=== PATIENT | female | born 1955 | race Caucasian/White ===

== ENCOUNTER 2017-12-19 13:56 | Day surgery (SDC) | payer OTHER ==
[~2017-12-19] VITALS: Ht 160 cm; Wt 68.7 kg
[~2017-12-19 13:56] MED LIST: GABA100; ROSU10TA PO; ROSU5; TRAM50 PO
== END 2017-12-19 15:05 | disposition home or self-care (01) ==
LOC: ORSCSDS 13:56
PROVIDERS: Internal Medicine Gastroenterology
PROC: 0DB58ZX Excision of Esophagus, Via Natural or Artificial Opening Endoscopic, Diagnostic (ICD-10-PCS; principal; 2017-12-19 15:15)
PROC: 0D758DZ Dilation of Esophagus with Intraluminal Device, Via Natural or Artificial Opening Endoscopic (ICD-10-PCS; principal; 2017-12-19 15:15)
DX: R13.10 Dysphagia, unspecified (principal); K22.70 Barrett's esophagus without dysplasia; K22.2 Esophageal obstruction; J32.0 Chronic maxillary sinusitis; K44.9 Diaphragmatic hernia without obstruction or gangrene; Z87.891 Personal history of nicotine dependence; Z79.899 Other long term (current) drug therapy
CPT/HCPCS: 87081; 88305

== ENCOUNTER 2020-10-06 09:41 | Day surgery (SDC) | payer MEDICARE, BC ==
[~2020-10-06] VITALS: Ht 160 cm; Wt 71.5 kg
[~2020-10-06 09:41] MED LIST changes: +OMEP20ER PO
[2020-10-06] MEDS ORDERED: OMEP20ER (09:56)
== END 2020-10-06 11:15 | disposition home or self-care (01) ==
LOC: ORSCSDS 09:41
PROVIDERS: Internal Medicine Gastroenterology
PROC: 0D758ZZ Dilation of Esophagus, Via Natural or Artificial Opening Endoscopic (ICD-10-PCS; principal; 2020-10-06 11:00)
PROC: 0DB58ZX Excision of Esophagus, Via Natural or Artificial Opening Endoscopic, Diagnostic (ICD-10-PCS; principal; 2020-10-06 11:00)
DX: K22.70 Barrett's esophagus without dysplasia (principal); R13.10 Dysphagia, unspecified; K44.9 Diaphragmatic hernia without obstruction or gangrene; Z79.899 Other long term (current) drug therapy
CPT/HCPCS: 88305; J2704; J7120

== ENCOUNTER → 2021-08-13 | Outpatient (CLI) | payer MEDICARE, BC ==
[~2021-08-13] MED LIST changes: +OMEP20ER
[2021-08-13 12:54] LABS: Anion Gap 12 mmol/L (6-16); Blood Urea Nitrogen 8 mg/dL (8-24); Bun/Creatinine Ratio 12.7 (12.0-20.0); CO2, Blood 30 mmol/L (21-32); Calcium, Blood 8.7 mg/dL (8.5-10.1); Chloride, Blood 103 mmol/L (98-108); Creatinine, Blood 0.63 mg/dL (0.40-1.00); Glomerular Filtration Rate >60 (60-); Glucose, Blood 95 mg/dL (70-99); Potassium, Blood 3.6 mmol/L (3.5-5.5); Sodium, Blood 145 mmol/L (136-145)
[2021-08-13 13:33] LABS: CPK Creatine Kinase 64 U/L (26-192)
== END | disposition home or self-care (01) ==
LOC: LAB SHORT 12:44
PROVIDERS: General Practice
DX: E87.5 Hyperkalemia (principal)
CPT/HCPCS: 80048; 82550

== ENCOUNTER 2021-08-17 07:40 | Day surgery (SDC) | payer MEDICARE, BC ==
[~2021-08-17] VITALS: Ht 160 cm; Wt 67.8 kg
== END 2021-08-17 09:33 | disposition home or self-care (01) ==
LOC: ORSCSDS 07:40
DX: R13.10 Dysphagia, unspecified (principal); K22.70 Barrett's esophagus without dysplasia; K22.2 Esophageal obstruction; K44.9 Diaphragmatic hernia without obstruction or gangrene; Z87.891 Personal history of nicotine dependence; Z79.899 Other long term (current) drug therapy
CPT/HCPCS: 88305; J2704; J7120

== ENCOUNTER → 2021-08-18 | Outpatient (CLI) | payer MEDICARE, BC ==
[2021-09-02 01:07] LABS: TRICYCLIC ANTIDEP Negative ng/mL (Cutoff=100)
== END | disposition home or self-care (01) ==
LOC: LAB SHORT 09:05
PROVIDERS: Family Medicine
DX: Z51.81 Encounter for therapeutic drug level monitoring (principal); Z79.899 Other long term (current) drug therapy
CPT/HCPCS: G0480; G0481

== ENCOUNTER → 2022-02-06 | Outpatient (CLI) | payer MEDICARE, BC ==
[2022-02-11 08:09] LABS: TRAMADOL >5882 (.)
== END | disposition home or self-care (01) ==
LOC: LAB 14:02 → LAB SHORT 14:02
PROVIDERS: Family Medicine
DX: Z51.81 Encounter for therapeutic drug level monitoring (principal); Z79.899 Other long term (current) drug therapy
CPT/HCPCS: G0480

== ENCOUNTER 2022-12-06 10:02 | Day surgery (SDC) | payer MEDICARE, BC ==
[~2022-12-06] VITALS: Ht 160 cm; Wt 66.7 kg
[2022-12-06 11:48] VITALS: BP 108/58
== END 2022-12-06 11:54 | disposition home or self-care (01) ==
LOC: ORSCSDS 10:02
PROVIDERS: Internal Medicine Gastroenterology
PROC: 0D758ZZ Dilation of Esophagus, Via Natural or Artificial Opening Endoscopic (ICD-10-PCS; principal; 2022-12-06 11:15)
PROC: 0DB58ZX Excision of Esophagus, Via Natural or Artificial Opening Endoscopic, Diagnostic (ICD-10-PCS; principal; 2022-12-06 11:15)
DX: K22.70 Barrett's esophagus without dysplasia (principal); R13.10 Dysphagia, unspecified; K22.2 Esophageal obstruction; Z79.899 Other long term (current) drug therapy
CPT/HCPCS: 88305; J2704; J7120

== ENCOUNTER → 2023-04-05 | Outpatient (CLI) | payer MEDICARE, BC ==
[2023-04-09 11:08] LABS: TRICYCLIC ANTIDEP Negative ng/mL (Cutoff=100)
== END ==
LOC: LAB 09:15 → LAB SHORT 09:15
PROVIDERS: Family Medicine
DX: G89.4 Chronic pain syndrome (principal)
CPT/HCPCS: G0480; G0481

== ENCOUNTER → 2023-06-21 | Outpatient (CLI) | payer MEDICARE, BC ==
[2023-06-21 11:41] LABS: Source, Urine Voided
[2023-06-21 11:43] LABS: Bilirubin, Urine Neg (Neg); Blood, Urine Neg (Neg); Color, Urine Yellow (P-Yellow); Glucose Qualitative, Urine Neg (Neg); Ketones, Urine Neg (Neg); Leukocyte Esterase, Urine 1+ (Neg); Nitrite, Urine Neg (Neg); Protein, Urine 1+ (Neg); Specific Gravity, Urine 1.025 (1.003-1.022); Urobilinogen, Urine NORM (Normal)
[2023-06-21 11:49] LABS: Appearance, Urine Hazy (Clear)
[2023-06-21 11:51] LABS: Calcium Oxalate Crystals Many /hpf
[2023-06-21 11:52] LABS: Bacteria Rare /hpf; Red Blood Cells, Urine 0-2 /hpf (0-2); Squamous Epithelial Cells Few /hpf (Few)
[2023-06-21 11:53] LABS: Transitional Epithelial Cells Rare /hpf (0-Rare)
== END ==
LOC: LAB SHORT 09:20 → LAB 09:20
PROVIDERS: Family Medicine
DX: R39.11 Hesitancy of micturition (principal)
CPT/HCPCS: 81001; 87086

== ENCOUNTER 2024-07-30 08:58 | Day surgery (SDC) | payer MEDICARE, BC ==
[~2024-07-30] VITALS: Ht 160 cm; Wt 69.0 kg
[~2024-07-30 08:58] MED LIST changes: +Lactated Ringer's 1,000 ML IV ONE; +propofoL 50 ML IV ONE
[2024-07-30] MEDS ORDERED: LOSA25 (09:22)
[2024-07-30] MEDS ORDERED: BACL10 PO (09:22)
[2024-07-30] MEDS ORDERED: Lactated Ringer's 1,000 ML IV ONE (09:49)
[2024-07-30 11:17] VITALS: BP 127/79
== END 2024-07-30 10:50 | disposition home or self-care (01) ==
LOC: ORSCSDS 08:58
PROVIDERS: Internal Medicine Gastroenterology
PROC: 0DJ08ZZ Inspection of Upper Intestinal Tract, Via Natural or Artificial Opening Endoscopic (ICD-10-PCS; principal; 2024-07-30 10:15)
DX: K22.70 Barrett's esophagus without dysplasia (principal); R13.10 Dysphagia, unspecified; K44.9 Diaphragmatic hernia without obstruction or gangrene; Z79.899 Other long term (current) drug therapy
CPT/HCPCS: C1769; J2704; J7120

== ENCOUNTER 2025-06-08 11:54 | Day surgery (SDC) | payer MEDICARE, BC ==
[~2025-06-08] VITALS: Ht 162.6 cm; Wt 63.1 kg
[~2025-06-08 11:54] MED LIST changes: +BACL10 PO; +LOSA25; -Lactated Ringer's 1,000 ML IV ONE; -propofoL 50 ML IV ONE
[2025-06-08 15:56] VITALS: BP 127/71
== END 2025-06-08 15:10 | disposition home or self-care (01) ==
LOC: ORSCSDS 11:54
PROVIDERS: Family Medicine
PROC: 0DB58ZX Excision of Esophagus, Via Natural or Artificial Opening Endoscopic, Diagnostic (ICD-10-PCS; principal; 2025-06-08 13:15)
PROC: 0DB68ZX Excision of Stomach, Via Natural or Artificial Opening Endoscopic, Diagnostic (ICD-10-PCS; principal; 2025-06-08 13:15)
DX: R13.19 Other dysphagia (principal); K44.9 Diaphragmatic hernia without obstruction or gangrene; K29.70 Gastritis, unspecified, without bleeding; K21.9 Gastro-esophageal reflux disease without esophagitis; E78.5 Hyperlipidemia, unspecified; Z87.891 Personal history of nicotine dependence; Z79.899 Other long term (current) drug therapy
CPT/HCPCS: 88305; 88342; J2704; J7120